=== PATIENT | female | born 1990 | race American Indian/Alaskan Native ===

== ENCOUNTER 2021-10-23 08:22 | Emergency (ER) | payer MEDICAID ==
[2021-10-23] MEDS ORDERED: SODIUM CHLORIDE 0.9% 1000 ML 1,000 ML IV ONE (08:44)
[2021-10-23] MEDS ORDERED: METOCLOPRAMIDE 10 MG/2 ML INJ IV ONE (08:44)
[2021-10-23] MEDS ORDERED: FAMOTIDINE 20 MG TAB PO ONE (08:45)
[2021-10-23] MEDS ORDERED: LIDOCAINE VISCOUS 2% 15 ML ORAL LIQD PO ONE (08:45)
--- NOTE | 2021-10-23 08:45 | Emergency Department Report ---
ED N/V/D HPI - General Chief complaint: Nausea/Vomiting/Diarrhea Stated complaint: CHEST PAIN/VOMITING PUI?: No Time Seen by Provider: 10/23/21 08:34 Source: patient Mode of arrival: Ambulatory Limitations: No Limitations - History of Present Illness Initial comments: 31-year-old female who denies any significant past medical history presents to the ER today with complaints of nausea, vomiting, epigastric pain, and chest pain. Patient states that she has been nauseous and has been vomiting since last week . She states that she started having substernal chest pain last night. She said that she feels like there is somebody hitting her in the central chest, and she also describes it as a burning pain. She also reports epigastric abdominal pain. Patient states that she went to [facility] last week when her vomiting for started. She states that she found out at the time that she was . She does admit that she missed her period in October. She was prescribed Zofran and Reglan which she states has not been helping with her vomiting. She did have an US and she reports that it showed gestational sac but nothing else and they told her she could be having miscarriage. She reports no shortness of breath, cough, URI symptoms, fever, chills, UTI symptoms, vaginal bleeding, calf pain or lower extremity swelling. She is G6, P3 Ab2. She denies any abdominal surgeries in the past. She denies any illicit drug use, alcohol abuse or tobacco use. MD complaint: nausea, vomiting, abdominal pain, other (chest pain ) -: days(s) - Related Data Previous Rx's Medication Instructions Recorded Last Taken Type Ondansetron [Zofran Odt] 4 mg PO Q8HR #15 tab.rapdis 10/23/21 Unknown Rx Potassium Chloride 20 meq PO BID 3 Days #1 bottle 10/23/21 Unknown Rx Promethazine HCl [Phenergan SUPPOS] 25 mg RC Q6HR #20 tab 10/23/21 Unknown Rx Pyridoxine [Vitamin B-6 50MG TAB] 50 mg PO DAILY #30 tab 10/23/21 Unknown Rx Allergies Allergy/AdvReac Type Severity Reaction Status Date / Time No Known Allergies Allergy Verified 11/08/13 03:12 ED Review of Systems ROS: Stated complaint: CHEST PAIN/VOMITING Other details as noted in HPI Comment: All other systems reviewed and negative Constitutional: denies: chills, fever Eyes: denies: eye pain, eye discharge, vision change ENT: denies: ear pain, throat pain Respiratory: denies: cough, shortness of breath, SOB with exertion, SOB at rest, wheezing Cardiovascular: chest pain Gastrointestinal: abdominal pain, nausea, vomiting. denies: diarrhea, constipation, hematemesis, melena Genitourinary: denies: urgency, dysuria, frequency, hematuria, discharge, abnormal menses, dyspareunia Musculoskeletal: denies: back pain, joint swelling, arthralgia Skin: denies: rash, lesions, change in color, change in hair/nails, pruritus Neurological: denies: headache, weakness, numbness, paresthesias, confusion, abnormal gait, vertigo Psychiatric: denies: anxiety, depression, auditory hallucinations, visual hallucinations, homicidal thoughts, suicidal thoughts Hematological/Lymphatic: denies: easy bleeding, easy bruising ED Past Medical Hx - Past Medical History Previous Medical History?: No - Surgical History Past Surgical History?: Yes Additional Surgical History: 3 c-sections - Social History Smoking Status: Never Smoker Substance Use Type: None - Medications Home Medications: Home Medications Medication Instructions Recorded Confirmed Last Taken Type Ondansetron [Zofran Odt] 4 mg PO Q8HR #15 tab.rapdis 10/23/21 Unknown Rx Potassium Chloride 20 meq PO BID 3 Days #1 bottle 10/23/21 Unknown Rx Promethazine HCl [Phenergan SUPPOS] 25 mg RC Q6HR #20 tab 10/23/21 Unknown Rx Pyridoxine [Vitamin B-6 50MG TAB] 50 mg PO DAILY #30 tab 10/23/21 Unknown Rx ED Physical Exam - General Limitations: No Limitations General appearance: alert, anxious, in distress (from pain and vomiting) - Head Head exam: Present: atraumatic, normocephalic, normal inspection - Eye Eye exam: Present: normal appearance, PERRL, EOMI Pupils: Present: normal accommodation - Neck Neck exam: Present: normal inspection, full ROM. Absent: meningismus - Respiratory Respiratory exam: Present: normal lung sounds bilaterally. Absent: respiratory distress, wheezes, rales, rhonchi, stridor - Cardiovascular Cardiovascular Exam: Present: regular rate, normal rhythm, normal heart sounds - GI/Abdominal GI/Abdominal exam: Present: soft, tenderness (Epigastric, no guarding or rebound ). Absent: distended, guarding, rebound, rigid - Neurological Exam Neurological exam: Present: alert, oriented X3, CN II-XII intact, normal gait - Psychiatric Psychiatric exam: Present: normal affect, normal mood - Skin Skin exam: Present: intact ED Course Vital Signs 10/23/21 10/23/21 08:30 11:42 Temperature 98 F 98.1 F Pulse Rate 75 63 Respiratory 16 18 Rate Blood Pressure 134/74 123/86 [Left] O2 Sat by Pulse 99 100 Oximetry ED Medical Decision Making - Lab Data Result diagrams: 10/23/21 09:10 10/23/21 09:10 Laboratory Tests 10/23/21 10/23/21 10/23/21 09:10 09:10 09:10 WBC 12.6 H RBC 4.52 Hgb 13.5 Hct 40.3 MCV 89 MCH 30 MCHC 33 RDW 13.6 Plt Count 331 Lymph % (Auto) 12.8 L [place] % (Auto) 8.2 H Eos % (Auto) 0.0 Baso % (Auto) 0.5 Lymph # (Auto) 1.6 [place] # (Auto) 1.0 H Eos # (Auto) 0.0 Baso # (Auto) 0.1 Seg Neutrophils % 78.5 H Seg Neutrophils # 9.9 H Sodium 132 L Potassium 2.9 L* Chloride 93.0 L Carbon Dioxide 22 Anion Gap 20 BUN 7 Creatinine 0.5 L Estimated GFR > 60 BUN/Creatinine Ratio 14 Glucose 117 H Calcium 10.3 H Total Bilirubin 0.90 AST 16 ALT 26 Alkaline Phosphatase 51 Troponin T < 0.010 Total Protein 7.9 Albumin 4.5 Albumin/Globulin Ratio 1.3 Lipase 14 HCG, Quant 33703 H - EKG Data EKG shows normal: sinus rhythm Rate: normal (61) - EKG Data Interpretation: normal EKG - Radiology Data Radiology results: report reviewed Patient: AZALEA DE LA ROSA MR# : [id number] : 1990 Acct:[id number] Age/Sex: 31 / F ADM Date: 10/23/21 Loc: ED Attending Dr: Ordering Physician: NIKKIE JACOBS Date of Service: 10/23/21 Procedure(s): US OB transvaginal Accession Number(s): [id number] cc: NIKKIE Almaz JACOBS [facility] OBSTETRIC ULTRASOUND HISTORY: Abdominal pain during COMPARISON: 06/13/2014 TECHNIQUE: Routine transabdominal OB ultrasound performed. FINDINGS: Uterus: The uterus is retroflexed and mildly enlarged measuring 11.3 x 5.2 x 5.2 cm. Gestational Sac: Well-defined oval shape and intrauterine in location. Yolk Sac: Normal in appearance. Fetus/Embryo: Staves-rump length of 0.3 cm, corresponding to an estimated gestational age of 5 weeks 6 days. Embryonic/ anatomy is too small for evaluation. Embryonic/ cardiac activity: 117bpm Placenta: Too small for evaluation. Amniotic fluid volume: Subjectively appropriate for gestational age. Ovaries: The right ovary is normal in size and appearance with normal blood flow, measuring 3.1 x 2.5 x 3.2 cm. The left ovary is normal in size and appearance with normal blood flow, measuring 2.9 x 1.8 x 3.0 cm. Hypoechoic space-occupying mass in the right ovary with peripheral vascularity is most likely the corpus luteum. There is also a 1.4 cm simple appearing right ovarian cyst. Additional findings: A small subchorionic hemorrhage is identified along the inferior border of the gestational sac measuring 1.8 x 0.7 cm. IMPRESSION Viable single intrauterine as described. 1.4 cm right ovarian cyst. Small subchorionic hemorrhage. Signer Name: Philip Eli Jr, MD Signed: 10/23/2021 11:22 AM Workstation Name: [id number] Transcribed By: TTR Dictated By: PHILIP ELI JR, MD Electronically Authenticated By: PHILIP ELI JR, MD Signed Date/Time: 10/23/21 1122 DD/ 1119 TD/TT: - Medical Decision Making Patient feeling better. She did vomit after receiving the Pepcid and also after taking 40 mg oral potassium. But she was able to tolerate the dissolved potassium. She is currently resting comfortably. She is not toxic. She is neurologically intact. Her gait is normal. Her repeat vital signs are stable. Labs reviewed -patient potassium was 2.9, and therefore she did receive oral potassium as well as IV potassium. Magnesium was normal. Urinalysis did not suggest UTI. Her EKG showed normal sinus rhythm without any STEMI or si gnificant dysrhythmias. OB ultrasound showed Viable single intrauterine as described. 1.4 cm right ovarian cyst. Small subchorionic hemorrhage. I believe that her chest pain was probably related to esophagitis/gastritis from her vomiting. I do not suspect unstable angina, pulmonary embolus, esophageal rupture or any other acute cardiopulmonary abnormalities requiring additional te sting including imaging. Her abdominal exam is benign. Discussed case with Dr Perrin. Since patient is feeling better, her vomiting has resolved and she is tolerating p.o. 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 Recommended amada products and sipping on throat throughout the day. Patient understands to return to the ER if worse. Patient was stable at time of discharge. Critical care attestation.: If time is entered above; I have spent that time in minutes in the direct care of this critically ill patient, excluding procedure time. ED Disposition Clinical Impression: Hyperemesis gravidarum, Hypokalemia, Nonspecific chest pain, Esophagitis Disposition: 01 HOME / SELF CARE / HOMELESS Is pt being admited?: No Does the pt Need Aspirin: No Condition: Stable Instructions: Esophagitis, Hyperemesis Gravidarum, Hypokalemia, Nonspecific Chest Pain, Adult, [id number], Potassium Content of Foods Additional Instructions: You can take the zofran with the phenergan suppositories prescribed to day. Do not take the reglan if you take the phenergan. The vitamin B6 will also help w ith vomiting and so take as prescribed. Take the zantac as prescribed to help with indigestion. I recommend sip on water/pedialyte through out the day. Recommend amada products and also consuming potassium rich foods. You will be prescribed liquid potassium for the next 3 days. Instead of large meals, I recommend small frequent meals through out the day. Follow up with your OBGYN next week. If you do not have MOISTURE CONDITIONER OPERATOR will be provided to you on your discharge instructions. Return to the ER if your symptoms changes or worsens in any way. Prescriptions: Promethazine HCl [Phenergan SUPPOS] 25 mg RC Q6HR #20 tab Potassium Chloride 20 meq PO BID 3 Days #1 bottle Pyridoxine [Vitamin B-6 50MG TAB] 50 mg PO DAILY #30 tab Ondansetron [Zofran Odt] 4 mg PO Q8HR #15 tab.channingdis Referrals: TIFFANIE TERAN MD [Primary Care Provider] - 3-5 Days [facility] [Provider Group] - 3-5 Days [facility] [Provider Group] - 3-5 Days Forms: Work/School Release Form(ED) Time of Disposition: 14:42 Heart Score - HEART Score History: Slightly suspicious EKG: Normal Age: < 45 Risk factors: No known risk factors Troponin: < normal limit HEART Score: 0 - EKG Read Time Time EKG Completed: 08:50 EKG Read Time: 08:57
[2021-10-23 09:38] LABS: Basophils # (Auto) 0.1 K/mm3 (0.0-0.1); Basophils % (Auto) 0.5 % (0.0-1.8); Hematocrit 40.3 % (30.3-42.9); Hemoglobin 13.5 gm/dl (10.1-14.3); Lymphocytes # (Auto) 1.6 K/mm3 (1.2-5.4); Lymphocytes % (Auto) 12.8 % (13.4-35.0); Mean Corpuscular HGB Conc 33 % (30-34); Mean Corpuscular Volume 89 fl (79-97); Monocytes % (Auto) 8.2 % (0.0-7.3); Platelet Count 331 K/mm3 (140-440); Red Blood Count 4.52 M/mm3 (3.65-5.03); Red Cell Distribution Width 13.6 % (13.2-15.2)
[2021-10-23 09:59] LABS: Alanine Aminotransferase 26 units/L (7-56); Albumin 4.5 g/dL (3.9-5); Blood Urea Nitrogen 7 mg/dL (7-17); Calcium 10.3 mg/dL (8.4-10.2); Hemolysis Index 10
[2021-10-23 10:03] LABS: BUN/Creatinine Ratio 14
[2021-10-23] MEDS ORDERED: POTASSIUM CHLORIDE ER 20 MEQ TAB PO ONE ×2 (10:24→11:51)
--- NOTE | 2021-10-23 11:27 | Ultrasound Report ---
[facility] OBST[facility]IC ULTRASOUND HISTORY: Abdominal pain during COMPARISON: 06/13/2014 TECHNIQUE: Routine transabdominal OB ultrasound performed. FINDINGS: Uterus: The uterus is retroflexed and mildly enlarged measuring 11.3 x 5.2 x 5.2 cm. Gestational Sac: Well-defined oval shape and intrauterine in location. Yolk Sac: Normal in appearance. Fetus/Embryo: [place]-rump length of 0.3 cm, corresponding to an estimated gestational age of 5 weeks 6 days. Embryonic/ anatomy is too small for evaluation. Embryonic/ cardiac activity: 117bpm Placenta: Too small for evaluation. Amniotic fluid volume: Subjectively appropriate for gestational age. Ovaries: The right ovary is normal in size and appearance with normal blood flow, measuring 3.1 x 2. 5 x 3.2 cm. The left ovary is normal in size and appearance with normal blood flow, measuring 2.9 x 1.8 x 3.0 cm. Hypoechoic space-occupying mass in the right ovary with peripheral vascularity is most likely the corpus luteum. There is also a 1.4 cm simple appearing right ovarian cyst. Additional findings: A small subchorionic hemorrhage is identified along the inferior border of the g estational sac measuring 1.8 x 0.7 cm. IMPRESSION Viable single intrauterine as described. 1.4 cm right ovarian cyst. Small subchorionic hemorrhage. Signer Name: Philip Eli Jr, MD Signed: 10/23/2021 11:22 AM Workstation Name: [id number]
[2021-10-23] MEDS: POTASSIUM CHLORIDE 10 MEQ 10 MEQ/100 ML BAG IV SCH ×2 (11:36→12:56)
[2021-10-23 11:43] VITALS: BP 123/86
[2021-10-23] MEDS ORDERED: POTASSIUM CHLORIDE 20 MEQ PACKET FEEDTUBE ONE (13:00)
[2021-10-23 15:33] LABS: Bacteria,Urine 1+ /HPF (Negative); Bilirubin,Urine NEG (Negative); Blood,Urine NEG (Negative); Color,Urine Yellow (Yellow); Mucus,Urine 3+ /HPF
--- NOTE | 2021-10-26 18:31 | Electrocardiograph Report ---
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
== END 2021-10-23 16:11 | disposition home or self-care (01) ==
LOC: ED 08:22
DX: O21.0 Mild hyperemesis gravidarum (principal); Z3A.00 Weeks of gestation of pregnancy not specified; R07.9 Chest pain, unspecified; E87.6 Hypokalemia
CPT/HCPCS: 36415; 76817; 80053; 81001; 83690; 83735; 84484; 84702; 85025; 93005; 96361; 96365; 96375; 99284; J2765; J3480; J7030; 96374; Q0162

== ENCOUNTER 2021-11-10 10:46 | Emergency (ER) | payer MEDICAID ==
[2021-11-10 11:58] VITALS: BP 113/66
--- NOTE | 2021-11-10 12:59 | Emergency Department Report ---
ED Female HPI - General Chief complaint: Vaginal Bleeding Stated complaint: 10 WKS PREG/VAGINAL BLEEDING Time Seen by Provider: 11/10/21 11:55 Source: patient Mode of arrival: Ambulatory Limitations: No Limitations - History of Present Illness Initial comments: Chief complaint: Vaginal bleeding HPI: This is a 31-year-old female who is approximately 10 weeks who presents vaginal bleeding since last night. She denies pain. She has mild vaginal spotting. Complaint: vaginal bleeding -: Gradual, Last night Severity: mild Consistency: intermittent Improves with: none Worsens with: none Are you Now?: Yes - Related Data Previous Rx's Medication Instructions Recorded Last Taken Type Ondansetron [Zofran Odt] 4 mg PO Q8HR #15 tab.rapdis 10/23/21 Unknown Rx Potassium Chloride 20 meq PO BID 3 Days #1 bottle 10/23/21 Unknown Rx Promethazine HCl [Phenergan SUPPOS] 25 mg RC Q6HR #20 tab 10/23/21 Unknown Rx Pyridoxine [Vitamin B-6 50MG TAB] 50 mg PO DAILY #30 tab 10/23/21 Unknown Rx Allergies Allergy/AdvReac Type Severity Reaction Status Date / Time No Known Allergies Allergy Verified 11/08/13 03:12 ED Review of Systems ROS: Stated complaint: 10 WKS PREG/VAGINAL BLEEDING Other details as noted in HPI Comment: All other systems reviewed and negative Constitutional: denies: chills, fever, malaise Respiratory: denies: cough, shortness of breath Cardiovascular: denies: chest pain Gastrointestinal: denies: abdominal pain, nausea, vomiting ED Past Medical Hx - Past Medical History Previous Medical History?: No - Surgical History Past Surgical History?: Yes Additional Surgical History: 3 c-sections - Social History Smoking Status: Never Smoker Substance Use Type: None - Medications Home Medications: Home Medications Medication Instructions Recorded Confirmed Last Taken Type Ondansetron [Zofran Odt] 4 mg PO Q8HR #15 tab.rapdis 10/23/21 Unknown Rx Potassium Chloride 20 meq PO BID 3 Days #1 bottle 10/23/21 Unknown Rx Promethazine HCl [Phenergan SUPPOS] 25 mg RC Q6HR #20 tab 10/23/21 Unknown Rx Pyridoxine [Vitamin B-6 50MG TAB] 50 mg PO DAILY #30 tab 10/23/21 Unknown Rx ED Physical Exam - General Limitations: No Limitations General appearance: alert, in no apparent distress - Head Head exam: Present: atraumatic, normocephalic - Eye Eye exam: Present: normal appearance - ENT ENT exam: Present: mucous membranes moist - Neck Neck exam: Present: normal inspection - Respiratory Respiratory exam: Present: normal lung sounds bilaterally. Absent: respiratory distress - Cardiovascular Cardiovascular Exam: Present: regular rate, normal rhythm. Absent: systolic murmur, diastolic murmur, rubs, gallop - GI/Abdominal GI/Abdominal exam: Present: soft, normal bowel sounds. Absent: distended, tenderness, guarding, rebound - Extremities Exam Extremities exam: Present: normal inspection - Neurological Exam Neurological exam: Present: alert, oriented X3 - Psychiatric Psychiatric exam: Present: normal affect, normal mood - Skin Skin exam: Present: warm, dry, intact, normal color. Absent: rash ED Course Vital Signs 11/10/21 11:53 Temperature 98.6 F Pulse Rate 91 H Respiratory 16 Rate Blood Pressure 113/66 O2 Sat by Pulse 100 Oximetry ED Medical Decision Making - Medical Decision Making Threatened miscarriage: Recommended pelvic rest. Patient blood type AB Positive, confirmed with testing today. Referred to [facility]PORATE LEGAL MANAGER. Patient has first appointment scheduled. Discharged home. Critical care attestation.: If time is entered above; I have spent that time in minutes in the direct care of this critically ill patient, excluding procedure time. ED Disposition Clinical Impression: Threatened miscarriage Disposition: 01 HOME / SELF CARE / HOMELESS Is pt being admited?: No Does the pt Need Aspirin: No Condition: Stable Instructions: Threatened Miscarriage Referrals: [facility] [Provider Group] - 3-5 Days
== END 2021-11-10 15:53 | disposition left against medical advice (07) ==
LOC: ED 10:46
DX: O20.0 Threatened abortion (principal); Z3A.10 10 weeks gestation of pregnancy
CPT/HCPCS: 86900; 86901; 99281; 99283

== ENCOUNTER 2021-11-12 21:58 | Emergency (ER) | payer MEDICAID ==
[2021-11-12 22:21] VITALS: BP 142/83
[2021-11-13] MEDS ORDERED: diphenhydrAMINE 50 MG/ML VIAL IV ONE (02:21)
[2021-11-13] MEDS ORDERED: SODIUM CHLORIDE 0.9% 1000 ML 1,000 ML IV ONE (02:21)
[2021-11-13] MEDS ORDERED: METOCLOPRAMIDE 10 MG/2 ML INJ IV ONE (02:21)
[2021-11-13] MEDS ORDERED: FAMOTIDINE 20 MG/2 ML INJ IV ONE (02:22)
[2021-11-13 02:58] LABS: Bilirubin,Urine NEG (Negative); Blood,Urine NEG (Negative); Color,Urine Yellow (Yellow); Mucus,Urine 2+ /HPF
[2021-11-13 03:04] LABS: Basophils # (Auto) 0.1 K/mm3 (0.0-0.1); Basophils % (Auto) 0.7 % (0.0-1.8); Eosinophils # (Auto) 0.1 K/mm3 (0.0-0.4); Eosinophils % (Auto) 0.6 % (0.0-4.3); Hematocrit 38.7 % (30.3-42.9); Hemoglobin 13.3 gm/dl (10.1-14.3); Lymphocytes # (Auto) 1.7 K/mm3 (1.2-5.4); Lymphocytes % (Auto) 18.4 % (13.4-35.0); Mean Corpuscular HGB Conc 34 % (30-34); Mean Corpuscular Volume 90 fl (79-97); Monocytes # (Auto) 0.7 K/mm3 (0.0-0.8); Platelet Count 318 K/mm3 (140-440); Red Cell Distribution Width 13.8 % (13.2-15.2)
[2021-11-13 03:24] LABS: Alanine Aminotransferase 49 units/L (7-56); Blood Urea Nitrogen 4 mg/dL (7-17); Calcium 9.4 mg/dL (8.4-10.2); Hemolysis Index 12
[2021-11-13 03:43] LABS: BUN/Creatinine Ratio 8
[2021-11-13] MEDS ORDERED: POTASSIUM CHLORIDE ER 20 MEQ TAB PO ONE (04:00)
--- NOTE | 2021-11-13 04:46 | Emergency Department Report ---
<LARRY ESTEBAN - Last Filed: 11/13/21 04:42> ED N/V/D HPI - General Chief complaint: Nausea/Vomiting/Diarrhea Stated complaint: EMESIS/8WKS Source: patient Mode of arrival: Ambulatory Limitations: No Limitations - History of Present Illness Initial comments: Patient is a A2 31-year-old -Surinamese female with no past medical history and who is approximately 7 weeks gestation presents to the ED with complaint of acute onset persistent intractable nausea and vomiting for the last 1 week, worse in the last 2 days. Patient states that in the last 2 days, she has not been able to keep anything down and that in the last 12 hours she has had up to 12 episodes of nausea and vomiting. Patient states that she has previously used promethazine suppositories which she ran out of about 2 weeks ago. Patient denies vaginal bleeding, abdominal pain, chest pain, shortness of breath, fever, chills, sore throat, headache, dizziness, syncope, lightheadedness, dysuria, urinary frequency and urgency or vaginal discharge. MD complaint: nausea, vomiting -: Sudden, week(s) (1) Description of Vomiting: food contents, watery, bilious Associated Abdominal Pain: No Location: diffuse Radiation: none Severity: severe Pain Scale: 0 Quality: dull Consistency: intermittent Improves with: none Worsens with: eating, vomiting Context: other (Hyperemesis gravidarum) Associated Symptoms: denies other symptoms, loss of appetite, malaise, nausea/vomiting. denies: myalgias, chest pain, cough, diaphoresis, fever/chills, headaches, rash, dysuria, shortness of breath, syncope, weakness - Related Data Previous Rx's Medication Instructions Recorded Last Taken Type Ondansetron [Zofran Odt] 4 mg PO Q8HR #15 tab.rapdis 10/23/21 Unknown Rx Potassium Chloride 20 meq PO BID 3 Days #1 bottle 10/23/21 Unknown Rx Pyridoxine [Vitamin B-6 50MG TAB] 50 mg PO DAILY #30 tab 10/23/21 Unknown Rx Famotidine [Pepcid] 20 mg PO BID #60 tablet 11/13/21 Unknown Rx 148/Iron/Folate 6/Dha 1 each PO DAILY #60 cap 11/13/21 Unknown Rx [Tendera-Ob Softgel] Promethazine HCl [Phenergan SUPPOS] 25 mg RC Q6HR PRN #30 tab 11/13/21 Unknown Rx Promethazine [Phenergan] 25 mg PO Q6HR PRN #30 tab 11/13/21 Unknown Rx Allergies Allergy/AdvReac Type Severity Reaction Status Date / Time No Known Allergies Allergy Verified 11/08/13 03:12 ED Review of Systems Constitutional: denies: chills, fever Eyes: denies: eye pain, eye discharge, vision change ENT: denies: ear pain, throat pain Respiratory: denies: cough, shortness of breath, wheezing Cardiovascular: denies: chest pain, palpitations Endocrine: no symptoms reported Gastrointestinal: nausea, vomiting. denies: abdominal pain, diarrhea, constipation, hematemesis Genitourinary: denies: urgency, dysuria, discharge Musculoskeletal: denies: back pain, joint swelling, arthralgia Skin: denies: rash, lesions Neurological: denies: headache, weakness, paresthesias Psychiatric: denies: anxiety, depression Hematological/Lymphatic: denies: easy bleeding, easy bruising ED Past Medical Hx - Surgical History Additional Surgical History: 3 c-sections - Social History Smoking Status: Never Smoker Substance Use Type: None - Medications Home Medications: Home Medications Medication Instructions Recorded Confirmed Last Taken Type Ondansetron [Zofran Odt] 4 mg PO Q8HR #15 tab.rapdis 10/23/21 Unknown Rx Potassium Chloride 20 meq PO BID 3 Days #1 bottle 10/23/21 Unknown Rx Pyridoxine [Vitamin B-6 50MG TAB] 50 mg PO DAILY #30 tab 10/23/21 Unknown Rx Famotidine [Pepcid] 20 mg PO BID #60 tablet 11/13/21 Unknown Rx 148/Iron/Folate 6/Dha 1 each PO DAILY #60 cap 11/13/21 Unknown Rx [Tendera-Ob Softgel] Promethazine HCl [Phenergan SUPPOS] 25 mg RC Q6HR PRN #30 tab 11/13/21 Unknown Rx Promethazine [Phenergan] 25 mg PO Q6HR PRN #30 tab 11/13/21 Unknown Rx ED Physical Exam - General Limitations: No Limitations General appearance: alert, in no apparent distress - Head Head exam: Present: atraumatic, normocephalic, normal inspection - Eye Eye exam: Present: normal appearance, PERRL, EOMI Pupils: Present: normal accommodation - ENT ENT exam: Present: normal exam, normal orophraynx, mucous membranes moist, TM's normal bilaterally, normal external ear exam - Neck Neck exam: Present: normal inspection, full ROM. Absent: tenderness - Respiratory Respiratory exam: Present: normal lung sounds bilaterally. Absent: respiratory distress, wheezes, chest wall tenderness, decreased breath sounds, prolonged expiratory - Cardiovascular Cardiovascular Exam: Present: regular rate, normal rhythm, normal heart sounds. Absent: systolic murmur, diastolic murmur, rubs, gallop - GI/Abdominal GI/Abdominal exam: Present: soft, normal bowel sounds. Absent: tenderness, guarding, rebound, hyperactive bowel sounds, hypoactive bowel sounds, organomegaly - Extremities Exam Extremities exam: Present: normal inspection, full ROM, normal capillary refill. Absent: tenderness - Back Exam Back exam: Present: normal inspection, full ROM. Absent: tenderness, CVA tenderness (R), CVA tenderness (L), muscle spasm, paraspinal tenderness, vertebral tenderness - Neurological Exam Neurological exam: Present: alert, oriented X3, CN II-XII intact, normal gait, reflexes normal - Psychiatric Psychiatric exam: Present: normal affect, normal mood - Skin Skin exam: Present: warm, dry, intact, normal color. Absent: rash ED Medical Decision Making - Lab Data Result diagrams: 11/13/21 02:42 11/13/21 02:42 - Medical Decision Making This is a A2 31-year-old -[place]inames[place] female with no past medical history and who is approximately 7 weeks gestation presents to the ED with complaint of acute onset persistent intractable nausea and vomiting for the last 1 week, worse in the last 2 days. Patient states that in the last 2 days, she has not been able to keep anything down and that in the last 12 hours she has had up to 12 episodes of nausea and vomiting. Patient states that she has previously used promethazine suppositories which she ran out of about 2 weeks ago. In the ED, patient is alert and oriented x3 and is not in any distress. Lab test results are reviewed and are all nonactionable except for mild hyponatremia 134 mmol/L and hypokalemia of 3.5 mmol/L. The hCG quant is [id number]. Urinalysis unremarkable. Patient was treated in the ED for nausea and vomiting with antiemetics, antacids and also normal saline 1 L IV bolus x1. On reevaluation, patient felt better, patient passed oral fluid challenge in the ED. Patient is hemodynamically stable. Patient was discharged home on medications including antiemetics and advised to follow-up with her CHART CLERK physician in 7 to 10 days for reevaluation. Patient was advised return to the ED immediately if symptoms get worse. - Differential Diagnosis Hyperemesis gravidarum; dehydration; GERD; gastroenteritis; UTI ED Disposition Clinical Impression: Nausea and vomiting in prior to 22 weeks gestation Disposition: HOME / SELF CARE / HOMELESS Is pt being admited?: No Does the pt Need Aspirin: No Condition: Stable Instructions: Hyperemesis Gravidarum, Nausea and Vomiting, Adult, [id number], Morning Sickness, [id number] Additional Instructions: All lab test results were reviewed and are all nonactionable. Therefore maintain a clear liquid diet for 1224 hrs., drink plenty of fluids, take medications as needed for nausea and vomiting, follow-up with your CHART CLERK physician in 7 to 10 days for reevaluation or return to the ED immediately if symptoms get worse. Prescriptions: Famotidine [Pepcid] 20 mg PO BID #60 tablet Promethazine [Phenergan] 25 mg PO Q6HR PRN #30 tab PRN Reason: Nausea Promethazine HCl [Phenergan SUPPOS] 25 mg RC Q6HR PRN #30 tab PRN Reason: Nausea 148/Iron/Folate 6/Dha [Tendera-Ob Softgel] 1 each PO DAILY #60 cap Referrals: PARI VALERIO MD [Staff Physician] - 7-10 days Forms: Work/School Release Form(ED) Time of Disposition: 04:47 Print Language: NAURUAN <JACK COBOS - Last Filed: 11/13/21 05:58> ED Review of Systems ROS: Stated complaint: EMESIS/8WKS Other details as noted in HPI ED Course Vital Signs 11/12/21 22:20 Temperature 99.2 F Pulse Rate 96 H Respiratory 18 Rate Blood Pressure 142/83 O2 Sat by Pulse 100 Oximetry ED Medical Decision Making - Lab Data Result diagrams: 11/13/21 02:42 11/13/21 02:42 Vital Signs 11/12/21 22:20 Temperature 99.2 F Pulse Rate 96 H Respiratory 18 Rate Blood Pressure 142/83 O2 Sat by Pulse 100 Oximetry Lab Results 11/13/21 11/13/21 11/13/21 Range/Units 02:38 02:42 02:42 WBC 9.1 (4.5-11.0) K/mm3 RBC 4.30 (3.65-5.03) M/mm3 Hgb 13.3 (10.1-14.3) gm/dl Hct 38.7 (30.3-42.9) % MCV 90 (79-97) fl MCH 31 (28-32) pg MCHC 34 (30-34) % RDW 13.8 (13.2-15.2) % Plt Count 318 (140-440) K/mm3 Lymph % (Auto) 18.4 (13.4-35.0) % Bradford % (Auto) 8.0 H (0.0-7.3) % Eos % (Auto) 0.6 (0.0-4.3) % Baso % (Auto) 0.7 (0.0-1.8) % Lymph # (Auto) 1.7 (1.2-5.4) K/mm3 Bradford # (Auto) 0.7 (0.0-0.8) K/mm3 Eos # (Auto) 0.1 (0.0-0.4) K/mm3 Baso # (Auto) 0.1 (0.0-0.1) K/mm3 Seg Neutrophils % 72.3 H (40.0-70.0) % Seg Neutrophils # 6.6 (1.8-7.7) K/mm3 Sodium 134 L (137-145) mmol/L Potassium 3.5 L (3.6-5.0) mmol/L Chloride 96.4 L (98-107) mmol/L Carbon Dioxide 24 (22-30) mmol/L Anion Gap 17 mmol/L BUN 4 L (7-17) mg/dL Creatinine 0.5 L (0.6-1.2) mg/dL Estimated GFR > 60 ml/min BUN/Creatinine Ratio 8 % Glucose 97 (65-100) mg/dL Calcium 9.4 (8.4-10.2) mg/dL Total Bilirubin 0.50 (0.1-1.2) mg/dL AST 22 (5-40) units/L ALT 49 (7-56) units/L Alkaline Phosphatase 56 (35-129) units/L Total Protein 7.6 (6.3-8.2) g/dL Albumin 4.0 (3.9-5) g/dL Albumin/Globulin Ratio 1.1 % Lipase 14 (13-60) units/L HCG, Quant (0-4) mIU/mL Urine Color Yellow (Yellow) Urine Turbidity Clear (Clear) Urine pH 7.0 (5.0-7.0) Ur Specific Julian 1.024 (1.003-1.030) Urine Protein 30 mg/dl (Negative) mg/dL Urine Glucose (UA) Neg (Negative) mg/dL Urine Ketones Neg (Negative) mg/dL Urine Blood Neg (Negative) Urine Nitrite Neg (Negative) Urine Bilirubin Neg (Negative) Urine Urobilinogen 2.0 (<2.0) mg/dL Ur Leukocyte Esterase Neg (Negative) Urine WBC (Auto) 4.0 (0.0-6.0) /HPF Urine RBC (Auto) 2.0 (0.0-6.0) /HPF U Epithel Cells (Auto) 6.0 (0-13.0) /HPF Urine Mucus 2+ /HPF 11/13/21 Range/Units 02:42 WBC (4.5-11.0) K/mm3 RBC (3.65-5.03) M/mm3 Hgb (10.1-14.3) gm/dl Hct (30.3-42.9) % MCV (79-97) fl MCH (28-32) pg MCHC (30-34) % RDW (13.2-15.2) % Plt Count (140-440) K/mm3 Lymph % (Auto) (13.4-35.0) % Bradford % (Auto) (0.0-7.3) % Eos % (Auto) (0.0-4.3) % Baso % (Auto) (0.0-1.8) % Lymph # (Auto) (1.2-5.4) K/mm3 Bradford # (Auto) (0.0-0.8) K/mm3 Eos # (Auto) (0.0-0.4) K/mm3 Baso # (Auto) (0.0-0.1) K/mm3 Seg Neutrophils % (40.0-70.0) % Seg Neutrophils # (1.8-7.7) K/mm3 Sodium (137-145) mmol/L Potassium (3.6-5.0) mmol/L Chloride (98-107) mmol/L Carbon Dioxide (22-30) mmol/L Anion Gap mmol/L BUN (7-17) mg/dL Creatinine (0.6-1.2) mg/dL Estimated GFR ml/min BUN/Creatinine Ratio % Glucose (65-100) mg/dL Calcium (8.4-10.2) mg/dL Total Bilirubin (0.1-1.2) mg/dL AST (5-40) units/L ALT (7-56) units/L Alkaline Phosphatase (35-129) units/L Total Protein (6.3-8.2) g/dL Albumin (3.9-5) g/dL Albumin/Globulin Ratio % Lipase (13-60) units/L HCG, Quant [id number] H (0-4) mIU/mL Urine Color (Yellow) Urine Turbidity (Clear) Urine pH (5.0-7.0) Ur Specific Julian (1.003-1.030) Urine Protein (Negative) mg/dL Urine Glucose (UA) (Negative) mg/dL Urine Ketones (Negative) mg/dL Urine Blood (Negative) Urine Nitrite (Negative) Urine Bilirubin (Negative) Urine Urobilinogen (<2.0) mg/dL Ur Leukocyte Esterase (Negative) Urine WBC (Auto) (0.0-6.0) /HPF Urine RBC (Auto) (0.0-6.0) /HPF U Epithel Cells (Auto) (0-13.0) /HPF Urine Mucus /HPF Critical care attestation.: If time is entered above; I have spent that time in minutes in the direct care of this critically ill patient, excluding procedure time. ED Disposition Is pt being admited?: No Does the pt Need Aspirin: No
== END 2021-11-13 05:22 | disposition home or self-care (01) ==
LOC: ED 21:58
DX: O21.9 Vomiting of pregnancy, unspecified (principal); Z3A.01 Less than 8 weeks gestation of pregnancy
CPT/HCPCS: 36415; 80053; 81001; 83690; 84702; 85025; 96361; 96374; 96375; 99283; J1200; J2765; J3490; J7030; Q0162

== ENCOUNTER 2022-03-14 14:12 | Emergency (ER) | payer MEDICAID ==
[2022-03-14 16:20] LABS: Mucus,Urine 1+ /HPF
[2022-03-14 16:22] LABS: Bacteria,Urine 1+ /HPF (Negative); Hyaline Casts,Urine 280 /LPF
[2022-03-14 16:24] LABS: Bilirubin,Urine Negative (Negative); Color,Urine Yellow (Yellow)
[2022-03-14 16:25] LABS: Blood,Urine Negative (Negative)
--- NOTE | 2022-03-14 17:25 | Emergency Department Report ---
ED Dysuria HPI - HPI Chief Complaint: Rectal Pain Stated Complaint: ANAL PAIN AND BURNING 2WKS Time Seen by Provider: 03/14/22 16:51 Location of Discomfort: Other Severity: Mild Symptoms: Dysuria: Yes, Frequency: No, Suprapubic Pain: No, Flank Pain: No, Fever: No, Hematuria: No, Abdominal Pain: No, Previous UTI's: No Other History: Patient is a 6-month gravid female that comes to the emergency room with rectal pressure. She is currently being treated with Flagyl for her BV. This is her sixth and she has 3 living children. She denies any vaginal discharge. She endorses hemorrhoids which are new to her experience. 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 Patient has no abdominal pain. No back pain. No fever or chills. No vaginal bleeding. ED Review of Systems ROS: Stated complaint: ANAL PAIN AND BURNING 2WKS Other details as noted in HPI Comment: All other systems reviewed and negative Gastrointestinal: other (Endorses constipation and having to strain) ED Past Medical Hx - Past Medical History Previous Medical History?: No - Surgical History Past Surgical History?: Yes Additional Surgical History: 3 c-sections - Family History Family history: no significant - Social History Smoking Status: Never Smoker Substance Use Type: None - Medications Home Medications: Home Medications Medication Instructions Recorded Confirmed Last Taken Type Ondansetron [Zofran Odt] 4 mg PO Q8HR #15 tab.rapdis 10/23/21 Unknown Rx Potassium Chloride 20 meq PO BID 3 Days #1 bottle 10/23/21 Unknown Rx Pyridoxine [Vitamin B-6 50MG TAB] 50 mg PO DAILY #30 tab 10/23/21 Unknown Rx Famotidine [Pepcid] 20 mg PO BID #60 tablet 11/13/21 Unknown Rx 148/Iron/Folate 6/Dha 1 each PO DAILY #60 cap 11/13/21 Unknown Rx [Tendera-Ob Softgel] Promethazine HCl [Phenergan SUPPOS] 25 mg RC Q6HR PRN #30 tab 11/13/21 Unknown Rx Promethazine [Phenergan] 25 mg PO Q6HR PRN #30 tab 11/13/21 Unknown Rx Amoxicillin [Trimox CAP] 500 mg PO BID #20 capsule 03/14/22 Unknown Rx Docusate Sodium [Colace] 100 mg PO BID #60 capsule 03/14/22 Unknown Rx Fluconazole [Diflucan TAB] 100 mg PO QDAY #2 tablet 03/14/22 Unknown Rx Phenylephrine HCl/Bellaire Butter 1 each RC DAILY PRN #12 03/14/22 Unknown Rx [Preparation H Suppository] Dysuria Exam - Exam General: Vital signs noted. No distress. Alert and acting appropriately. Exam: Yes Moist Mucous Membranes, No CVA Tenderness, No Abdominal Tenderness, No Rigidity or Guarding Labs: Lab Results 03/14/22 Range/Units Unknown Urine Color Yellow (Yellow) Urine Turbidity Clear (Clear) Urine pH 8.0 H (5.0-7.0) Ur Specific [place] 1.010 (1.003-1.030) Urine Protein 30 mg/dl (Negative) mg/dL Urine Glucose (UA) Negative (Negative) mg/dL Urine Ketones Negative (Negative) mg/dL Urine Blood Negative (Negative) Urine Nitrite Negative (Negative) Ur Reducing Substances Not Reportable Urine Bilirubin Negative (Negative) Urine Ictotest Not Reportable Urine Urobilinogen 0.0 (<2.0) mg/dL Ur Leukocyte Esterase Negative (Negative) Urine WBC (Auto) 31.0 H (0.0-6.0) /HPF Urine RBC (Auto) 1.0 (0.0-6.0) /HPF U Epithel Cells (Auto) 16.0 H (0-13.0) /HPF Urine Bacteria (Auto) 1+ (Negative) /HPF Hyaline Casts 280 /LPF Urine Mucus 1+ /HPF ED Course Vital Signs 03/14/22 14:36 Temperature 98.6 F Pulse Rate 85 Respiratory 18 Rate Blood Pressure 136/67 [Left] O2 Sat by Pulse 98 Oximetry ED Medical Decision Making - Medical Decision Making Vital Signs 03/14/22 14:36 Temperature 98.6 F Pulse Rate 85 Respiratory 18 Rate Blood Pressure 136/67 [Left] O2 Sat by Pulse 98 Oximetry Labs 03/14/22 Unknown Urine Color Yellow Urine Turbidity Clear Urine pH 8.0 H Ur Specific Camp 1.010 Urine Protein 30 mg/dl Urine Glucose (UA) Negative Urine Ketones Negative Urine Blood Negative Urine Nitrite Negative Ur Reducing Substances Not Reportable Urine Bilirubin Negative Urine Ictotest Not Reportable Urine Urobilinogen 0.0 Ur Leukocyte Esterase Negative Urine WBC (Auto) 31.0 H Urine RBC (Auto) 1.0 U Epithel Cells (Auto) 16.0 H Urine Bacteria (Auto) 1+ Hyaline Casts 280 Urine Mucus 1+ CURRENTLY UNDER CARE FOR BV GIVEN ROCPEHIN 1 GM IM DC HOME ON AMOX Culture is pending Discharging home with Colace and Preparation H suppositories for her hemorrhoids. I educated her on hemorrhoid care with and prevention. I told the patient that sometimes these bleed and not to be overly alarmed should . But to call her CODE ENFORCEMENT SUPERVISOR. Given patient to Diflucan to take to prevent yeast. Patient ambulatory, not ill nontoxic and taking p.o. Patient being discharged home with discharge plan of care including diet, activity, medications and follow-up. She verbalizes understanding of plan of care. - Differential Diagnosis UTI/HEMORRHOIDS/CURRENT BV Critical care attestation.: If time is entered above; I have spent that time in minutes in the direct care of this critically ill patient, excluding procedure time. ED Disposition Clinical Impression: UTI (urinary tract infection), Bacterial vaginitis, Hemorrhoids, Disposition: 01 HOME / SELF CARE / HOMELESS Is pt being admited?: No Does the pt Need Aspirin: No Condition: Stable Instructions: Hemorrhoids, [id number], Urinary Tract Infection, Adult, [id number], Bacterial Vaginosis (ED) Additional Instructions: MED ORDERED TODAY FOR UTI AMOX FOR 10 DAYS TAKE DIFLUCAN ON DAY 1 AND 10- TO PREVENT YEAST GIVEN YOUR ANTIBIOTICS TYLENOL FOR PAIN CONTINUE FLAGYL PER OBGYN CONTINUE PREP H OINTMENT COLACE TWICE PER DAY PREP H SUPPOSITORIES WE DISCUSSED AVOID STRAINING DRINK A LOT OF WATER Prescriptions: Docusate Sodium [Colace] 100 mg PO BID #60 capsule Fluconazole [Diflucan TAB] 100 mg PO QDAY #2 tablet Phenylephrine HCl/Bellaire Butter [Preparation H Suppository] 1 each RC DAILY PRN #12 PRN Reason: Hemorrhoids Amoxicillin [Trimox CAP] 500 mg PO BID #20 capsule Referrals: TIFFANIE TERAN MD [Staff Physician] - 3-5 Days Time of Disposition: 17:34
[2022-03-14 18:15] VITALS: BP 128/80
== END 2022-03-14 18:19 | disposition home or self-care (01) ==
LOC: ED 14:12
DX: O23.40 Unspecified infection of urinary tract in pregnancy, unspecified trimester (principal); B96.89 Other specified bacterial agents as the cause of diseases classified elsewhere; K64.9 Unspecified hemorrhoids; Z3A.00 Weeks of gestation of pregnancy not specified
CPT/HCPCS: 81001; 87086; 99283